=== PATIENT | female | born 2005 | race Asian ===

== ENCOUNTER 2025-03-10 19:30 | Emergency (ER) | payer OTHER ==
[~2025-03-10] VITALS: Ht 157.5 cm; Wt 95.9 kg
[2025-03-10 20:05] VITALS: TEMP 98.1
[2025-03-10 20:43] VITALS: BP 119/67; PULSE 71; RESP 18; O2SAT 97
== END 2025-03-10 22:19 | disposition left against medical advice (07) ==
LOC: EMS 19:30
DX: S93.401A Sprain of unspecified ligament of right ankle, initial encounter (principal); R55 Syncope and collapse; X50.1XXA Overexertion from prolonged static or awkward postures, initial encounter; Y93.89 Activity, other specified; Y92.89 Other specified places as the place of occurrence of the external cause; Y99.8 Other external cause status
CPT/HCPCS: 99283; Z7502